=== PATIENT | female | born 1985 | race Caucasian/White ===

== ENCOUNTER → 2017-05-24 | Outpatient (CLI) | payer BC ==
[2017-05-24 14:30] LABS: URINE APPEARANCE CLEAR (CLEAR); URINE BILIRUBIN NEG (NEG); URINE COLOR YELLOW; URINE NITRITE NEG (NEG); URINE PH 7.5 (4.5-7.5); URINE SPECIFIC GRAVITY 1.013 (1.000-1.030); UROBILINOGEN NEG (NEG)
[2017-05-24 14:33] LABS: MANUAL MICROSCOPIC REQUIRED? NO; REVIEW REQ? NO
== END | disposition home or self-care (01) ==
LOC: C.LABSPEC 13:50
PROVIDERS: ATTEND Obstetrics & Gynecology
DX: Z34.01 Encounter for supervision of normal first pregnancy, first trimester (principal)

== ENCOUNTER → 2017-05-30 | Outpatient (CLI) | payer BC ==
[2017-06-02 13:34] LABS: CHLAMYDIA TRACH RNA*** NOT DETECTED (NOT DETECTED); GC (NEIS GONORRHOEAE)RNA** NOT DETECTED (NOT DETECTED)
== END | disposition home or self-care (01) ==
LOC: C.LABSPEC 13:16
PROVIDERS: ATTEND Obstetrics & Gynecology
DX: Z34.01 Encounter for supervision of normal first pregnancy, first trimester (principal); Z3A.00 Weeks of gestation of pregnancy not specified

== ENCOUNTER → 2017-05-30 | Outpatient (CLI) | payer BC | END | disposition home or self-care (01) | LOC: C.PAPS 14:05 | PROVIDERS: ATTEND Obstetrics & Gynecology | DX: Z34.01 Encounter for supervision of normal first pregnancy, first trimester (principal); Z3A.00 Weeks of gestation of pregnancy not specified ==

== ENCOUNTER → 2017-06-03 | Outpatient (CLI) | payer OTHER ==
[2017-06-03 16:43] LABS: BASO % 0.2 %; BASO ABS # 0.02 K/uL (0-0.2); COMPLETE YES; EOS % 1.3 %; IG% 0.3 %; LYMPH % 26.8 %; MEAN CELL VOLUME 88.8 fL (80-100); MEAN CORPUSCULAR HEMOGLOBIN 30.1 pg (25-34); MEAN CORPUSCULAR HGB CONC 33.9 g/dl (32-36); MEAN PLATELET VOLUME 9.9 fL (7.4-10.4); MONO % 7.9 %; NEUT % 63.5 %; PLATELET COUNT 376 K/uL (130-400); RED BLOOD COUNT 4.28 M/uL (4.2-5.4); WHITE BLOOD COUNT 9.71 K/uL (4.8-10.8)
== END | disposition home or self-care (01) ==
LOC: C.LAB1850 14:32
PROVIDERS: ATTEND Obstetrics & Gynecology
DX: Z34.01 Encounter for supervision of normal first pregnancy, first trimester (principal)

== ENCOUNTER 2017-08-14 20:54 | Emergency (ER) | payer OTHER ==
[~2017-08-14] VITALS: Ht 172.7 cm; Wt 70.1 kg
[2017-08-14 20:55] VITALS: TEMP 36.5; Ht 172.7 cm; Wt 70.1 kg
[2017-08-14] MEDS ORDERED: SODIUM CHLORIDE 0.9% 1000ML 1,000 ML IV STA (21:08)
[2017-08-14] MEDS ORDERED: MULT-506 PO (21:20)
[2017-08-14] MEDS ORDERED: MISCCAP80 PO (21:20)
[2017-08-14] MEDS ORDERED: OMEG1CAP71 PO (21:20)
[2017-08-14] MEDS ORDERED: FERR1TAB23 PO (21:20)
[2017-08-14 21:41] LABS: BASO % 0.1 %; BASO ABS # 0.01 K/uL (0-0.2); COMPLETE YES; EOS % 0.9 %; IG% 0.7 %; LYMPH % 16.8 %; LYMPH ABS # 1.94 K/uL (1.2-3.4); MEAN CELL VOLUME 89.6 fL (80-100); MEAN CORPUSCULAR HEMOGLOBIN 31.1 pg (25-34); MEAN CORPUSCULAR HGB CONC 34.7 g/dl (32-36); MEAN PLATELET VOLUME 9.5 fL (7.4-10.4); MONO % 4.6 %; NEUT % 76.9 %; PLATELET COUNT 299 K/uL (130-400); RED BLOOD COUNT 4.02 M/uL (4.2-5.4); WHITE BLOOD COUNT 11.57 K/uL (4.8-10.8)
--- NOTE | 2017-08-14 21:44 | DIAGNOSTIC IMAGING REPORT ---
CHEST ONE VIEW PORTABLE HISTORY: 32 years-old Female CHEST PAIN acute atypical chest pain COMPARISON: None available TECHNIQUE: Portable upright AP view of the chest FINDINGS: Cardiomediastinal and hilar silhouettes are within normal limits. There is no pneumothorax, pleural effusion, focal airspace consolidation or overt pulmonary edema. The bones of the chest are grossly intact. IMPRESSION: No acute process. The above report was generated using voice recognition software. It may contain grammatical, syntax or spelling errors. Electronically signed by: Ghanshyam Roach M.D. 08/14/2017 9:43 PM Dictated Date/Time: 08/14/2017 9:42 PM
[2017-08-14 22:00] LABS: ALT/SGPT 28 U/L (12-78); BLOOD UREA NITROGEN 12 mg/dl (7-18); BUN/CREATININE RATIO 19.3 (10-20); CALCIUM 8.4 mg/dl (8.5-10.1); CARBON DIOXIDE 25 mmol/L (21-32); CHLORIDE 101 mmol/L (98-107); CREATININE 0.64 mg/dl (0.60-1.20); GLUCOSE 108 mg/dl (70-99); POTASSIUM 3.1 mmol/L (3.5-5.1); SODIUM 133 mmol/L (136-145)
[2017-08-14 22:03] LABS: ALKALINE PHOSPHATASE 45 U/L (45-117); AST/SGOT 16 U/L (15-37)
[2017-08-14 22:23] LABS: URINE APPEARANCE CLEAR (CLEAR); URINE BILIRUBIN NEG (NEG); URINE COLOR YELLOW; URINE EPITHELIAL CELL AUTO >30 /lpf (0-5); URINE NITRITE NEG (NEG); URINE PH 5.5 (4.5-7.5); URINE SPECIFIC GRAVITY 1.031 (1.000-1.030); UROBILINOGEN NEG (NEG)
[2017-08-14 22:26] LABS: MANUAL MICROSCOPIC REQUIRED? NO; REVIEW REQ? NO
[2017-08-14] MEDS ORDERED: POTASSIUM CHLORIDE 10 MEQ TABCR PO STA (23:00)
--- NOTE | 2017-08-14 23:07 | EMERGENCY ROOM VISIT NOTE ---
History Report prepared by Lona: Richard Sampson Under the Supervision of: Dr. Jair Gutierrez M.D. First contact with patient: 20:57 Chief Complaint: SYNCOPE (NEAR SYNCOPE) Stated Complaint: DIZZY,HEART RACING, HBP Nursing Triage Summary: Pt states she is 22 wks preg. Throughout the day has been lightheaded/dizzy. 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 Indigestion. 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 She notes that she suddenly felt dizzy and needed to "sit down or I'm going to pass out." She notes palpitations. She reports being 22 weeks with her first child. She notes that she feels the baby is kicking and moving as normal. She denies any abdominal pain, shortness of breath, leg pain, leg swelling, or current vaginal bleeding. She notes that in the beginning of her she had subchorionic hemorrhage that has since resolved. She notes a recent head cold and congestion. She notes taking a multivitamin daily. She denies any history of blood clots or thyroid disease. She has a history of varicose veins. 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 She denies leg pain, leg swelling, or current vaginal bleeding. She notes a recent head cold and congestion. Review of Systems See HPI for pertinent positives & negatives. A total of 10 systems reviewed and were otherwise negative. Past Medical & Surgical Medical Problems: (1) Dehydration (2) Dizziness Old medical records were reviewed. Nurse's notes were reviewed and I agree with. Family History No pertinent family history was reported. Social History Smoking Status: Never Smoker Smokeless Tobacco Use: No Alcohol Use: none Drug Use: none Marital Status: in relationship Occupation Status: employed Current/Historical Medications Scheduled Ferrous Sulfate (Iron), 325 MG PO DAILY Multivitamin (Multivitamin), 1 TAB PO DAILY [place] 3 Fatty Acids-[place] 6 Fa ([place] 3-6-9 Complex), 1 CAP PO DAILY Probiotic Product (Probiotic), 1 CAP PO DAILY Allergies Coded Allergies: No Known Allergies (Unverified , 08/14/17) Physical Exam Vital Signs Date Time Temp Pulse Resp B/P (MAP) Pulse Ox O2 Delivery O2 Flow Rate FiO2 08/14/17 23:36 79 18 113/69 98 08/14/17 22:28 81 18 117/66 97 Room Air 08/14/17 21:11 108 08/14/17 20:55 36.5 102 18 167/93 99 Room Air Physical Exam General: Mildly anxious-appearing young female in no acute distress. HEENT: Normal cephalic atraumatic. Pupils are equal round and reactive to light. Extraocular movements are intact. Oropharynx is pink with moist mucous membranes. No swelling of the mouth lips or tongue. Neck: Supple with a midline trachea. No meningeal signs or stiffness, no JVD or bruits. No Stridor. Chest: Clear to auscultation bilaterally. No wheezes or rhonchi. No increased work of breathing. Heart: Mildly tachycardiac and rhythm. Abdomen: Soft nontender, nondistended without rebound guarding or rigidity. Gravid. Extremities: No cyanosis clubbing or edema. No calf tenderness or assymetry Spine/Back. Non tender to palpation. No CVA tenderness Skin: Good turgor without rashes. Neurologic exam: Cranial nerves two through 12 are intact. Motor and sensation are intact and symmetrical throughout. Medical Decision & Procedures ER Provider Diagnostic Interpretation: Radiology results as stated below per my review and radiologist interpretation: CHEST ONE VIEW PORTABLE HISTORY: 32 years-old Female CHEST PAIN acute atypical chest pain COMPARISON: None available TECHNIQUE: Portable upright AP view of the chest FINDINGS: Cardiomediastinal and hilar silhouettes are within normal limits. There is no pneumothorax, pleural effusion, focal airspace consolidation or overt pulmonary edema. The bones of the chest are grossly intact. IMPRESSION: No acute process. The above report was generated using voice recognition software. It may contain grammatical, syntax or spelling errors. Electronically signed by: Ghanshyam Roach M.D. 08/14/2017 9:43 PM Dictated Date/Time: 08/14/2017 9:42 PM Laboratory Results 08/14/17 21:25 Red Blood Count 4.02, Mean Corpuscular Volume 89.6, Mean Corpuscular Hemoglobin 31.1, Mean Corpuscular Hemoglobin Concent 34.7, Mean Platelet Volume 9.5, Neutrophils (%) (Auto) 76.9, Lymphocytes (%) (Auto) 16.8, Monocytes (%) (Auto) 4.6, Eosinophils (%) (Auto) 0.9, Basophils (%) (Auto) 0.1, Neutrophils # (Auto) 8.91, Lymphocytes # (Auto) 1.94, Monocytes # (Auto) 0.53, Eosinophils # (Auto) 0.10, Basophils # (Auto) 0.01 08/14/17 21:25 Test 08/14/17 21:25 08/14/17 21:43 White Blood Count 11.57 K/uL (4.8-10.8) Red Blood Count 4.02 M/uL (4.2-5.4) Hemoglobin 12.5 g/dL (12.0-16.0) Hematocrit 36.0 % (37-47) Mean Corpuscular Volume 89.6 fL (80-100) Mean Corpuscular Hemoglobin 31.1 pg (25-34) Mean Corpuscular Hemoglobin Concent 34.7 g/dl (32-36) Platelet Count 299 K/uL (130-400) Mean Platelet Volume 9.5 fL (7.4-10.4) Neutrophils (%) (Auto) 76.9 % Lymphocytes (%) (Auto) 16.8 % Monocytes (%) (Auto) 4.6 % Eosinophils (%) (Auto) 0.9 % Basophils (%) (Auto) 0.1 % Neutrophils # (Auto) 8.91 K/uL (1.4-6.5) Lymphocytes # (Auto) 1.94 K/uL (1.2-3.4) Monocytes # (Auto) 0.53 K/uL (0.11-0.59) Eosinophils # (Auto) 0.10 K/uL (0-0.5) Basophils # (Auto) 0.01 K/uL (0-0.2) RDW Standard Deviation 39.2 fL (36.4-46.3) RDW Coefficient of Variation 12.1 % (11.5-14.5) Immature Granulocyte % (Auto) 0.7 % Immature Granulocyte # (Auto) 0.08 K/uL (0.00-0.02) D-Dimer 400 ug/L FEU (0-500) Anion Gap 7.0 mmol/L (3-11) Est Creatinine Clear Calc Drug Dose 129.6 ml/min Estimated GFR () 138.8 Estimated GFR (Non- 119.7 BUN/Creatinine Ratio 19.3 (10-20) Calcium Level 8.4 mg/dl (8.5-10.1) Total Bilirubin 0.4 mg/dl (0.2-1) Direct Bilirubin < 0.1 mg/dl (0-0.2) Aspartate Amino Transf (AST/SGOT) 16 U/L (15-37) Alanine Aminotransferase (ALT/SGPT) 28 U/L (12-78) Alkaline Phosphatase 45 U/L (45-117) Troponin I < 0.015 ng/ml (0-0.045) Total Protein 7.0 gm/dl (6.4-8.2) Albumin 3.3 gm/dl (3.4-5.0) Lipase 140 U/L (73-393) Urine Color YELLOW Urine Appearance CLEAR (CLEAR) Urine pH 5.5 (4.5-7.5) Urine Specific Melvin 1.031 (1.000-1.030) Urine Protein NEG (NEG) Urine Glucose (UA) 2+ (NEG) Urine Ketones TRACE (NEG) Urine Occult Blood NEG (NEG) Urine Nitrite NEG (NEG) Urine Bilirubin NEG (NEG) Urine Urobilinogen NEG (NEG) Urine Leukocyte Esterase TRACE (NEG) Urine WBC (Auto) 10-30 /hpf (0-5) Urine RBC (Auto) 0-4 /hpf (0-4) Urine Hyaline Casts (Auto) 1-5 /lpf (0-5) Urine Epithelial Cells (Auto) >30 /lpf (0-5) Urine Bacteria (Auto) NEG (NEG) Laboratory studies as stated above per my review. Medications Administered Medications (Trade) Dose Ordered Sig/Ruslan Route Start Time Stop Time Status Last Admin Dose Admin Sodium Chloride 1,000 ml @ 999 mls/hr Q1H1M STAT IV 08/14/17 21:08 08/14/17 22:08 DC 08/14/17 21:44 999 MLS/HR Potassium Chloride (Klor-Con M10) 40 meq NOW STAT PO 08/14/17 23:00 08/14/17 23:01 DC 08/14/17 23:12 40 MEQ ECG Indication: chest pain Rate (beats per minute): 79 Rhythm: normal sinus, other (with sinus arrythmia ) Findings: no acute ischemic change Comparison ECG Date: no prior available ED Course 2056: Past medical records reviewed. The patient was evaluated in room C9, and a complete history and physical examination were performed. 2126: I reassessed the patient at this time. She is feeling better and resting comfortably. 2216: I reassessed the patient at this time. She is feeling better and resting comfortably. 2256: I reassessed the patient at this time. She is feeling better and resting comfortably. 232: I reassessed the patient at this time. She is feeling better and resting comfortably. I discussed the results and treatment plan with the patient. I answered all pertaining questions that she had. She expressed understanding and verbalized agreement. The patient will be discharged home. Medical Decision Differentials include, but are not limited to; palpitations, syncope , arrhythmia, cardiac disease, PE, infection, and complication. This patient comes in as described above she's felt dizzy and is about 22 weeks . She's had no problems with the such as bleeding. She does feel normal movement. We documented heart tones here. She's had no shortness of breath. She has a cough and URI type symptoms. Chest x-ray was obtained with the baby shielded was unremarkable. EKG shows no acute ischemic changes or ectopy seen. IV access established and she was hydrated with 1 liter IV normal saline. Her heart rate came down significantly into this 80s she looks and feels better. She has a mildly low potassium 3.1. She was given 40 mEq and should increase her dietary potassium. Her urinalysis is suboptimal as it is greater than 30 epithelial cells however she has nothing to suggest infection. She has no protein in her urine or any peripheral edema. She feels good and would like to go home. I recommend that she follow up with her regular doctor and return if: Worsening of symptoms, any new problems or concerns, any problems or chest pain or shortness of breath. Medication Reconcilliation Current Medication List: was personally reviewed by me Blood Pressure Screening Patient's blood pressure: Normal blood pressure Impression Primary Impression: Dizziness Additional Impressions: Dehydration Hypokalemia Scribe Attestation The scribe's documentation has been prepared under my direction and personally reviewed by me in its entirety. I confirm that the note above accurately reflects all work, treatment, procedures, and medical decision making performed by me. Departure Information Dispostion Home / Self-Care Referrals Cecille Gold (PCP) Forms HOME CARE DOCUMENTATION FORM, IMPORTANT VISIT INFORMATION Patient Instructions My [facility] Additional Instructions Rest. Drink plenty of fluids. 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
[2017-08-14 23:36] VITALS: BP 113/69; PULSE 79; O2SAT 98
== END 2017-08-14 23:36 | disposition home or self-care (01) ==
LOC: C.EDB 20:55 → C.EDC 23:36
DX: O99.282 Endocrine, nutritional and metabolic diseases complicating pregnancy, second trimester (principal); E86.0 Dehydration; E87.6 Hypokalemia; Z3A.22 22 weeks gestation of pregnancy

== ENCOUNTER → 2017-09-27 | Outpatient (CLI) | payer OTHER ==
[~2017-09-27] MED LIST: FERR1TAB23 PO; MISCCAP80 PO; MULT-506 PO; OMEG1CAP71 PO
[2017-09-27 10:55] LABS: HEMATOCRIT 32.9 % (37-47); HEMOGLOBIN 11.3 g/dL (12.0-16.0)
== END | disposition home or self-care (01) ==
LOC: C.LAB1850 09:15
PROVIDERS: ATTEND Obstetrics & Gynecology
DX: Z34.03 Encounter for supervision of normal first pregnancy, third trimester (principal)

== ENCOUNTER → 2017-11-20 | Outpatient (CLI) | payer OTHER | END | disposition home or self-care (01) | LOC: C.LABSPEC 15:38 | PROVIDERS: ATTEND Obstetrics & Gynecology | DX: Z34.03 Encounter for supervision of normal first pregnancy, third trimester (principal) ==

== ENCOUNTER 2017-12-17 04:32 | Inpatient (IN) | payer OTHER ==
[~2017-12-17] VITALS: Ht 172.7 cm; Wt 79.0 kg
[2017-12-17] MEDS ORDERED: ACET650S10 (05:52)
[2017-12-17 05:54] VITALS: Ht 172.7 cm; Wt 79.0 kg
[2017-12-17] MEDS ORDERED: LACTATED RINGER'S 1000ML 1,000 ML IV PRN (07:38)
[2017-12-17] MEDS ORDERED: PENICILLIN G POTASSIUM IV 3 MU in DEXTROSE 5% 100ML 100 ML IV PRN (07:45)
[2017-12-17] MEDS ORDERED: PENICILLIN G POTASSIUM IV 6 MU in DEXTROSE 5% 250ML 250 ML IV STA (07:46)
[2017-12-17 07:57] LABS: HEMATOCRIT 40.2 % (37-47); HEMOGLOBIN 14.7 g/dL (12.0-16.0); MEAN CELL VOLUME 89.5 fL (80-100); MEAN CORPUSCULAR HEMOGLOBIN 32.7 pg (25-34); MEAN CORPUSCULAR HGB CONC 36.6 g/dl (32-36); MEAN PLATELET VOLUME 10.4 fL (7.4-10.4); PLATELET COUNT 303 K/uL (130-400); RED CELL DISTRIBUTION WIDTH CV 12.4 % (11.5-14.5); RED CELL DISTRIBUTION WIDTH SD 40.2 fL (36.4-46.3); WHITE BLOOD COUNT 17.83 K/uL (4.8-10.8)
[2017-12-17] MEDS ORDERED: LACTATED RINGER'S 1000ML 1,000 ML IV SCH (08:00)
[2017-12-17] MEDS ORDERED: BUPIVACAINE 0.25% 30 ML VIAL ONE (08:15)
[2017-12-17] MEDS ORDERED: FENTANYL CITRATE INJ 50 MCG/1 ML 2 ML VIAL ONE (08:15)
[2017-12-17] MEDS ORDERED: EpHEDrine SULFATE INJ 50 MG/ML AMP ONE (08:15)
[2017-12-17] MEDS ORDERED: FENTANYL 2MCG/ML ROPIV 1.25MG/ML 100ML BAG EPI ONE (08:16)
[2017-12-17] MEDS ORDERED: NALOXONE HCL INJ 1 MG in SODIUM CHLORIDE 0.9% 1000ML 1,000 ML IV PRN (09:03)
[2017-12-17] MEDS ORDERED: LACTATED RINGER'S 1000ML 500 ML IV PRN (09:03)
[2017-12-17] MEDS ORDERED: FENTANYL 2MCG/ML ROPIV 1.25MG/ML 100ML BAG EPI PRN (09:15)
[2017-12-17] MEDS ORDERED: EpHEDrine SULFATE INJ 50 MG/ML AMP IV PRN (09:15)
[2017-12-17] MEDS ORDERED: DiphenhydrAMINE HCL 50 MG/ML VIAL IV PRN (09:15)
[2017-12-17] MEDS ORDERED: NALOXONE HCL INJ 0.4 MG/1 ML VIAL/CARP IV PRN (09:15)
[2017-12-17] MEDS ORDERED: ONDANSETRON INJ 2 MG/ML 2 ML VIAL IV PRN (09:15)
[2017-12-17] MEDS ORDERED: NALBUPHINE HCL INJ 10 MG/ML AMP IV PRN (09:15)
[2017-12-17] MEDS ORDERED: OXYTOCIN 30 UNITS/500ML NSS IV ONE (09:45)
[2017-12-17] MEDS ORDERED: OXYCODONE/ACETAMINOPHEN 5-325 TAB PO PRN (10:15)
[2017-12-17] MEDS ORDERED: HYDROCORTISONE ACETATE 25 MG SUPP PR PRN (10:15)
[2017-12-17] MEDS ORDERED: BENZOCAINE 20% AER SPR 82.5 GM CAN EXT PRN (10:15)
[2017-12-17] MEDS ORDERED: LANOLIN OINT EXT PRN (10:15)
[2017-12-17] MEDS ORDERED: OXYTOCIN 30 UNITS/500ML NSS IV PRN (10:15)
[2017-12-17] MEDS ORDERED: ACETAMINOPHEN 325 MG TAB PO PRN (10:15)
[2017-12-17] MEDS ORDERED: SUPERCREAM 0.870 % 15GM JAR EXT PRN (10:15)
[2017-12-17] MEDS ORDERED: DIPHTHERIA/TETANUS/PERTUSSIS 0.5 ML SYR/VIAL IM. ONE (10:15)
--- NOTE | 2017-12-17 11:09 | DELIVERY SUMMARY ---
DATE OF OPERATION: 12/17/2017 PREOPERATIVE DIAGNOSES: 1. Intrauterine at 39-6/7 weeks. 2. Active labor. POSTOPERATIVE DIAGNOSES: Same. PROCEDURES: 1. Epidural anesthesia. 2. Normal spontaneous vaginal delivery. 3. Right labial laceration and first-degree vaginal laceration with repair. SURGEON: Joyce Colon MD ANESTHESIA: Epidural. ESTIMATED BLOOD LOSS: 400 mL. DESCRIPTION OF PROCEDURE: The patient presented to labor and delivery in early active labor. Once she got active, she progressed very quickly. She got an epidural when she was 3-4 cm dilated. After the epidural, she was checked and found to be 6 cm dilated and within the next 20 minutes was 8-9 cm dilated. Baby's tracing was category 2 at this time with some variable/late appearing decelerations that responded to position change and oxygen. They then transitioned into early decelerations and was quickly found to be complete, complete and +2 station. She pushed effectively to deliver a viable male in BUBBA presentation. The nose and mouth were bulb suctioned. There was no nuchal cord. The rest of the was then delivered without difficulty. There was immediate cry. The nose and mouth were again bulb suctioned and the infant was placed on the maternal abdomen for drawing in attention. The cord was clamped and cut at approximately 1-1/2 minutes of life. Cord blood and segment were obtained. Placenta was delivered spontaneously intact with a 3-vessel cord. Cervix, sulci, and rectum as well as the perineum were examined and found to be intact. A right labial laceration was repaired with interrupted sutures of 4-0 Vicryl and a small vaginal laceration was repaired with 3-0 Vicryl. Hemostasis was obtained with dilute Pitocin and fundal massage. Apgars were 8 and 9. Mother and baby doing well at the end of the delivery. I attest to the content of the Intraoperative Record and any orders documented therein. Any exception s are noted below.
--- NOTE | 2017-12-17 12:08 | Anesthesia Procedure Note ---
Anesthesia Epidural Removal Nt Date & Time Dec 17, 2017 at 12:08 Notes Mental Status: alert / awake / arousable, participated in evaluation Nausea / Vomiting: adequately controlled Pain: adequately controlled Airway Patency, RR, SpO2: stable & adequate BP & HR: stable & adequate Hydration State: stable & adequate Neuraxial Anesthesia: was administered Anesthetic Complications: no major complications apparent, pt satisfied with anesthetic care Epidural: removed without complications, with tip intact
[2017-12-17 13:00] VITALS: BP 123/74; PULSE 68; TEMP 36.6; O2SAT 99
[2017-12-17 15:55] VITALS: BP 125/79; PULSE 68; TEMP 36.6; O2SAT 99
[2017-12-17 19:10] VITALS: BP 122/75; PULSE 71; TEMP 36.6; O2SAT 96
[2017-12-17] MEDS: DOCUSATE SODIUM 100 MG CAP PO SCH (20:00)
[2017-12-17 23:25] VITALS: BP 117/68; PULSE 68; TEMP 36.7
[2017-12-18 04:30] VITALS: BP 102/66; PULSE 67; TEMP 36.5
--- NOTE | 2017-12-18 06:41 | Progress Note ---
Subjective Dec 18, 2017. Subjective conversation w/ patient, physical exam, chart review, lab review Ambulation: ambulating normally Voiding: no voiding problems Passing Gas: Yes Diet Tolerance: Regular Diet Lochia: Moderate Feeding Type: Breast Feeding Review of Systems Constitutional: No fever, No chills Respiratory: No cough, No shortness of breath Cardiac: No chest pain Abdomen: No pain, No nausea, No vomiting Female : No dysuria Objective Vital Signs Date Time Temp Pulse Resp B/P (MAP) Pulse Ox O2 Delivery O2 Flow Rate FiO2 12/18/17 04:30 36.5 67 18 102/66 (78) Room Air 12/17/17 23:25 36.7 68 16 117/68 (84) Room Air 12/17/17 23:25 Room Air 12/17/17 19:10 36.6 71 16 122/75 (91) 96 Room Air 12/17/17 15:55 36.6 68 16 125/79 (94) 99 Room Air 12/17/17 15:55 99 Room Air 12/17/17 13:00 99 Room Air 12/17/17 13:00 36.6 68 18 123/74 (90) 99 Room Air Physical Exam General Appearance: WELL-APPEARING, WD/WN, NO APPARENT DISTRESS Respiratory/Chest: lungs clear, no respiratory distress Cardiovascular: regular rate, rhythm, no murmur Abdomen: non tender, soft Fundus: Firm Extremities: non-tender, normal inspection Laboratory Results Last 24 Hours Test 12/17/17 07:48 12/17/17 12:14 12/18/17 04:44 White Blood Count 17.83 K/uL Red Blood Count 4.49 M/uL Hemoglobin 14.7 g/dL Hematocrit 40.2 % Mean Corpuscular Volume 89.5 fL Mean Corpuscular Hemoglobin 32.7 pg Mean Corpuscular Hemoglobin Concent 36.6 g/dl RDW Standard Deviation 40.2 fL RDW Coefficient of Variation 12.4 % Platelet Count 303 K/uL Mean Platelet Volume 10.4 fL Rubella IgG Antibody IMMUNE Assessment and Plan Problem List Medical Problems: (1) Hypokalemia Status: Acute (2) Status: Acute Post- (1) Day#: 1 Continue Routine Care: 32, F, , O+/GBS+, PPD1. Vitals reviewed, WNL. Hgb 14.7 on admission---> pending today. Patient is doing well clinically. Plan; 1. Vaginal delivery; ambulate, support bf, monitor lochia, control pain Resident Physician Supervision Note: I interviewed and examined the patient. Discussed with Dr. Dr. Nunes and agree with findings and plan as documented in the note. Any exceptions or clarifications are listed here: Doing well, uterus at u, routine care. Documented By: Joyce Colon
--- NOTE | 2017-12-18 07:25 | Discharge Instructions ---
Discharge Instructions Date of Service Dec 18, 2017. Admission Reason for Admission: LABOR Discharge Discharge Diagnosis / Problem: vaginal delivery Discharge Goals Goal(s): Routine recovery after delivery Medications Continue Dispensed Medications: supercream, dermaplast, tucks, lansinoh Activity Recommendations Activity Limitations: per Instructions/Follow-up section . Instructions / Follow-Up Instructions / Follow-Up ACTIVITY RECOMMENDATIONS: * Gradual return to full activity over the next 2-3 weeks. * No lifting - nothing heavier than baby over the next 2-3 weeks. * Do not engage in vigorous exercise, sexual activity or sports until cleared by your physician. * Do not drive or operate any motorized equipment until cleared by your physician. * You may shower/bathe daily. MEDICATIONS: For discomfort or pain, you may use Acetaminophen (Tylenol), Ibuprofen (Advil), or Naproxen (Aleve) following the package directions. For constipation you may use Colace following the package directions. BREAST CARE: If you are not breast feeding: * Wear a supportive bra 24 hours a day for one to two weeks. * Avoid stimulating your breasts and nipples as much as possible during the first few weeks after delivery. * When taking a shower, have the warm water hit your back, not breasts. * When your breasts feel full, apply ice packs. Usually three to four times a day helps ease the discomfort. * Take a mild pain medication (Tylenol / Motrin) when you are uncomfortable. If breast feeding: * Use breast milk to lubricate nipples. Lansinoh cream may be used for sore nipples. You do not need to remove cream prior to breast feeding. If using a different brand of cream, check the label for directions regarding removal of cream prior to nursing. * Wear a supportive bra. * If having problems with breasts or breast feeding, call a senior sustainability consultant or your health care provider. EPISIOTOMY CARE: After delivery, if you have an episiotomy (stitches), the following steps will ease discomfort and aid healing. * For the first 24 hours after delivery, place ice packs next to your episiotomy to help reduce swelling. * After the first 24 hour-period, sitz baths, either portable or in the tub, are suggested. A shower with a shower arm sprayed over the episiotomy may be comforting. * Priya care should be done after each voiding and bowel movement. Squirt warm water from a plastic bottle over the perineum (region of the body between the anus and urinary opening) and pat dry. * Use Dermoplast to ease discomfort. Shake container. [place] directly over the episiotomy. Place a Tucks on a clean sanitary pad next to your episiotomy. SPECIAL CARE INSTRUCTIONS: When you are discharged from the hospital, it is important for you to follow the instructions listed below: * During the first week at home, you should be able to care for yourself and your baby. In addition, the usual light household activities are encouraged. * Limit your activities to the way you feel. Do not try to clean the house or move furniture. Be sensible. * If you actively engage in sports and have done so up until the time of your delivery, you may resume these activities as soon as you feel able. This may take up to one month or even longer. Use good judgment. * Continue to take your vitamins for at least six weeks after the of your baby. * Your diet need not be limited unless you were on a special diet before your delivery. Breast-feeding mothers need around 2500 calories per day and at least 64-80 ounces of fluid per day (8 to 10 glasses). * You should eat foods from the four major food groups. Crash diets or fad diets are to be avoided. Eating lean meats, fresh fruits and vegetables, low-fat dairy products, high fiber foods and a regular exercise program, will help you get back to your pre- weight without putting your health at risk. * Constipation is sometimes a problem after delivery. Take a mild laxative as needed. If breast feeding, Milk of Magnesia is acceptable to use. You may use a suppository or Fleets enema if no episiotomy. * A daily shower or tub bath is suggested. Be sure to thoroughly and gently dry the perineum. * A bloody vaginal discharge will usually continue until around four weeks post . A small amount of bleeding may continue for as long as six weeks. Vaginal discharge changes from the bright red bleeding after delivery to pink then brownish and finally yellowish-pink before becoming white and disappearing. * Bleeding may increase with activity. Your first period may come in 4-8 weeks. If you are breast feeding, your period may be delayed even longer. * [place] (sex) can begin whenever both you and your partner feel comfortable and do not have any form of genital infection. It is recommended that you wait at least six weeks for internal and external healing to occur. If you have questions, please talk to your health care practitioner. A condom should be used to prevent infection and . * Foreplay, gentle intercourse and lubrication is very important the first several times to prevent pain. A water-based lubricant such as K-Y jelly or Astroglide may be used. * If you have RH negative blood and your baby is RH positive, you will receive RHOGAM by injection prior to discharge. The nurse will give you a card to keep with you that has the date and place that you received RHOGAM after delivery. * During your care, you had a Rubella screen done to check for the presence of rubella antibodies in your blood. If your test was negative, you will receive a Rubella vaccine prior to discharge. This vaccine may cause a fever, soreness at the injection site and flu-like symptoms. If these symptoms persist, notify your health care practitioner. is not advised for one month after a Rubella vaccine. * Verbalizes understanding of car seat law as reviewed with patient nursing. * Car Seat hand-out given and reviewed with patient by nursing. * Shaken baby information reviewed with patient by nursing. Call you doctor if: * Heavy bleeding (saturating several pads an hour) or passing clots the size of your fist. * A fever >101 degrees F (38.3 degrees C) on two occasions four hours apart and /or chills. * Unusual pain in the pelvic or vaginal areas. * "Baby Blues" lasting longer than two weeks. If you have any questions or concerns, call your health care practitioner at . FOLLOW UP VISIT: * Please call the office at to schedule a 6 week examination. It is important you keep this appointment. It is important for you to make arrangements for either yearly or twice yearly check-ups thereafter. Current Hospital Diet Patient's current hospital diet: Regular OB Diet Discharge Diet Recommended Diet: Regular Diet, Regular OB Diet Pending Studies Studies pending at discharge: no Medical Emergencies . Who to Call and When: Medical Emergencies: If at any time you feel your situation is an emergency, please call [phone] immediately. . Non-Emergent Contact Non-Emergency issues call your: Primary Care Provider, [employer] . . "Provider Documentation" section prepared by Luis Nunes. .
[2017-12-18 08:20] VITALS: BP 131/92; PULSE 85; TEMP 36.7; O2SAT 98
[2017-12-18] MEDS: DOCUSATE SODIUM 100 MG CAP PO SCH ×2 (08:21→19:47)
[2017-12-18] MEDS: PRENATAL VITAMIN TAB PO SCH (08:22)
[2017-12-18 08:50] LABS: HEMATOCRIT 32.9 % (37-47); HEMOGLOBIN 11.6 g/dL (12.0-16.0)
[2017-12-18] MEDS: IBUPROFEN 600 MG TAB PO PRN (16:08)
[2017-12-18 16:55] VITALS: BP 121/71; PULSE 71; TEMP 36.5; O2SAT 97
[2017-12-18 19:40] VITALS: BP 122/70; PULSE 78; TEMP 36.7; O2SAT 97
[2017-12-18 23:35] VITALS: BP 123/70; PULSE 76; TEMP 36.5; O2SAT 98
[2017-12-19] MEDS: IBUPROFEN 600 MG TAB PO PRN ×2 (01:51→08:23)
--- NOTE | 2017-12-19 06:43 | Progress Note ---
Subjective Dec 19, 2017. Subjective conversation w/ patient, physical exam, chart review, lab review Ambulation: ambulating normally Voiding: no voiding problems Passing Gas: Yes Diet Tolerance: Regular Diet Lochia: Small Feeding Type: Breast Feeding Review of Systems Constitutional: No fever, No chills, No sweats Respiratory: No cough, No shortness of breath Cardiac: No chest pain, No palpitations Abdomen: No pain, No nausea, No vomiting Female : No dysuria Objective Vital Signs Date Time Temp Pulse Resp B/P (MAP) Pulse Ox O2 Delivery O2 Flow Rate FiO2 12/18/17 23:35 36.5 76 18 123/70 (87) 98 Room Air 12/18/17 23:35 98 Room Air 12/18/17 19:40 36.7 78 18 122/70 (87) 97 Room Air 12/18/17 19:40 Room Air 12/18/17 16:55 97 Room Air 12/18/17 16:55 36.5 71 16 121/71 (88) 97 Room Air 12/18/17 08:20 98 Room Air 12/18/17 08:20 36.7 85 16 131/92 (105) 98 Room Air Physical Exam General Appearance: WELL-APPEARING, WD/WN, NO APPARENT DISTRESS Respiratory/Chest: lungs clear, no respiratory distress Cardiovascular: regular rate, rhythm, no murmur Abdomen: non tender, soft Fundus: Firm, Relation to Umbilicus (below the u) Extremities: non-tender, normal inspection Laboratory Results Last 24 Hours Test 12/18/17 08:31 Hemoglobin 11.6 g/dL Hematocrit 32.9 % Assessment and Plan Problem List Medical Problems: (1) Hypokalemia Status: Acute (2) Status: Acute Post- (1) Day#: 2 Continue Routine Care: 30, F, , O+/GBS+, PPD2. Vitals reviewed, WNL. Hgb 14.7 on admission---> 11.6. Patient is doing well clinically. Plan; 1. Vaginal delivery; ambulate, support bf, monitor lochia, control pain 2. Prepared patient for discharge Resident Physician Supervision Note: I was present with Dr. Nunes during the history and exam. I discussed the case with the resident and agree with the findings and plan as documented in the note. Any exceptions or clarifications are listed here: PPD#2 doing well. Discharge home today. Instructions reviewed. Documented By: Cassandra Parker
[2017-12-19 07:56] VITALS: BP 124/79; PULSE 63; TEMP 36.3; O2SAT 99
[2017-12-19 08:15] VITALS: O2SAT 99
[2017-12-19] MEDS: DOCUSATE SODIUM 100 MG CAP PO SCH (08:22)
[2017-12-19] MEDS: PRENATAL VITAMIN TAB PO SCH (08:22)
[2017-12-19 10:45] VITALS: BP_DIAS 79; PULSE 63; TEMP 36.3
== END 2017-12-19 13:44 | disposition home or self-care (01) | DRG 775 ==
LOC: C.LD 04:32 → C.OPB 04:32 → C.LD 07:39 → C.OBG 13:00 → EDSTATUS 12-18 04:28
PROVIDERS: ADMIT Obstetrics & Gynecology; ATTEND Obstetrics & Gynecology
PROC: 10E0XZZ Delivery of Products of Conception, External Approach (ICD-10-PCS; principal; 2017-12-17)
PROC: 0UQGXZZ Repair Vagina, External Approach (ICD-10-PCS; principal; 2017-12-17)
PROC: 0UQMXZZ Repair Vulva, External Approach (ICD-10-PCS; principal; 2017-12-17)
DX: O99.824 Streptococcus B carrier state complicating childbirth (principal); O70.0 First degree perineal laceration during delivery; O71.4 Obstetric high vaginal laceration alone; O76 Abnormality in fetal heart rate and rhythm complicating labor and delivery; Z37.0 Single live birth; Z3A.39 39 weeks gestation of pregnancy

== ENCOUNTER 2019-07-03 13:35 | Inpatient (IN) ==
[2019-07-03] MEDS ORDERED: LACTATED RINGER'S 1,000 ML IV PRN (15:08)
[2019-07-03] MEDS ORDERED: OXYTOCIN 30 UNITS/500 ML BAG IV PRN ×2 (15:08→16:57)
[2019-07-03 15:40] LABS: Hematocrit (blood only) 40.7 % (37-47); Hemoglobin 14.7 g/dL (12.0-16.0); Mean Corpuscular Hemoglobin 32.1 pg (25-34); Mean Corpuscular Volume 88.9 fL (80-100); Mean Platelet Volume 9.9 fL (7.4-10.4); Platelet Count 309 K/uL (130-400); RDW Coefficient of Variation 12.5 % (11.5-14.5); RDW Standard Deviation 39.7 fL (36.4-46.3); Red Blood Count 4.58 M/uL (4.2-5.4); White Blood Count 18.51 K/uL (4.8-10.8)
[2019-07-03 16:00] LABS: Mean Corpuscular Hgb Conc 36.1 g/dL (32-36)
--- NOTE | 2019-07-03 16:41 | History & Physical Report ---
Date of Service July 03, 2019 Assessment & Plan (1) Supervision of normal intrauterine in multigravida: pt was admitted, will see how arom progresses labor, anticip soon. labs done. History of Present Illness Chief Complaint: regular ctx Primary Care Provider: Cecille Gold 34yo at 38+wks ega presents to L&D with above cc. She was evaluated about 2hr ago and cx was 4cm with regular ctx and was admitted. No rom or vb. +FM. She now is feeling more intense ctx and pressure and requests exam with possible arom. pnc uncomplicated pnl rhpos, ri, gbs neg obh: x 1 gynh:nl paps, no stds pmh: neg psh: wisdom teeth, varicose vein sclerotherapy Allergies Allergy/AdvReac Type Severity Reaction Status Date / Time No Known Allergies Allergy Verified 07/01/19 14:17 Home Medications Home Medications Medication Instructions Recorded Confirmed Type ferrous sulfate 325 mg (65 mg 325 mg PO DAILY tab 04/10/19 07/03/19 History iron) tablet Patient History Medical History Varicose veins of both lower extremities History of irregular menstrual cycles History of varicella Surgical History History of wisdom tooth extraction Status post sclerotherapy of varicose veins Family History Grandmother (Maternal) Aneurysm Mother Breast cancer Grandfather (Paternal) Diabetes Aunt Breast cancer maternal Social History Preferred Language: Slovenian Communication Ability: Effective 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 Beliefs That Will Affect Care: None marital status: Current Living Situation: Spouse Other Information That Helps Us Care for You: No Feels Safe at Home: Yes Smoking Status: Never smoker Do You Dip or Chew Tobacco: No ; Second Hand Exposure: No ; Tobacco Cessation Education Requested by Patient: No Hx Alcohol Use: No Hx Substance Use: No Physical Exam Constitutional: WD/WN, vitals as above Respiratory: normal respiratory effort, lungs clear to auscultation Cardiovascular: Rate/Rhythm: regular rate and regular rhythm Gastrointestinal (Abdomen): Percussion/Palpation: abdomen soft (gravid); abdomen nontender Neurologic: grossly normal Psychiatric: A+Ox3, euthymic affect Genitourinary: Manual OB Exam: + cervical dilation 8 cm, + cervical effacement 100%, + station -1 and + amniotic fluid (AROM) clear OB Exam Monitor Tracing: + external FHT monitor used (mod variability), + external uterine monitor used (q2-3), + category I and + normal FHT variability Results & Data Vital Signs (Past 12 Hours) Vital Signs Temp Pulse Resp BP 07/03/19 14:51 97.7 F 72 18 122/83 07/03/19 14:48 97.7 F 72 18 122/83 07/03/19 13:53 98.2 F 60 18 137/77 07/03/19 13:52 60 137/77
--- NOTE | 2019-07-03 16:54 | Delivery Summary ---
Vaginal Delivery Summary Date of Service July 03, 2019 The patient dilated to complete and pushed to deliver a viable female Apg ars 8 and 9 via over intact perineum. Mouth and nose bulb suctioned at perineum, loose nuchal x 2 reduced. Shoulders and body delivered with ease. Infant was vigorous and crying at . Cord clamped and to maternal abdomen where the cord was then doubly clamped and cut. Placenta delivered spontaneously and intact, three-vessel cord. Hemostasis achieved with dilute pitocin and uterine massage. Cervix and sulci intact. EBL 300 cc. Mother and baby stable recovery. [facility] Vaginal Delivery Charge Vaginal Delivery Codes: 20210 global code for the antepartum, delivery, and post-
[2019-07-03] MEDS ORDERED: IBUPROFEN 600 MG TAB PO PRN (16:57)
[2019-07-03] MEDS ORDERED: ACETAMINOPHEN 325 MG TAB PO PRN (16:57)
[2019-07-03] MEDS ORDERED: OXYCODONE/ACETAMINOPHEN 5mg/325mg TAB PO PRN (16:57)
[2019-07-03] MEDS ORDERED: SUPERCREAM 0.870% 15 GM JAR EXT PRN (16:57)
[2019-07-03] MEDS ORDERED: OXYTOCIN 20 UNITS in LACTATED RINGER'S 1,000 ML IV SCH (17:00)
[2019-07-03] MEDS ORDERED: BENZOCAINE 20% AER SPR 82.5 GM CAN EXT PRN (17:12)
[2019-07-03] MEDS ORDERED: HYDROCORTISONE ACETATE 25 MG SUPP PR PRN (17:12)
[2019-07-03] MEDS ORDERED: DIPHTHERIA/TETANUS/PERTUSSIS 0.5 ML SYR/VIAL IM ONE (17:12)
[2019-07-03] MEDS ORDERED: DOCUSATE SODIUM 100 MG CAP PO SCH (21:00)
--- NOTE | 2019-07-04 07:45 | Obstetrical Progress Note ---
Date of Service July 04, 2019 Assessment & Plan (1) Normal labor and delivery: doing well, ready for d/c later today. f/u 6 wks pp check. instructions reviewed. Day #:: 1 Subjective Ambulation: ambulating normally Voiding: no voiding problems Diet Tolerance:: regular diet Lochia:: Small Feeding Type:: breast feeding no pain issues. wants to go home later today Physical Exam Constitutional WD/WN, vitals as above Respiratory normal respiratory effort, lungs clear to auscultation Cardiovascular Rate/Rhythm: regular rate and regular rhythm Gastrointestinal (Abdomen) Inspection/Auscultation: abdomen normal to inspection Percussion/Palpation: abdomen soft Fundus firm 2cm down Musculoskeletal nt calves no edema Neurologic grossly normal Psychiatric A+Ox3, euthymic affect Results & Data Vital Signs (Past 12 Hours) Vital Signs Temp Pulse Resp BP Pulse Ox 07/04/19 03:00 97.7 F 78 18 112/65 98 07/03/19 23:45 97.3 F L 76 18 118/78 98
[2019-07-04] MEDS ORDERED: PRENATAL VITAMIN 1 TAB PO SCH (08:00)
== END 2019-07-04 19:01 | disposition home or self-care (01) | DRG 807 ==
LOC: OPB 13:35 → 4S1 13:36 → 4S2 19:52

== ENCOUNTER 2025-06-14 15:53 | Inpatient (IN) ==
[2025-06-14] MEDS ORDERED: CALCIUM CARBONATE 500 MG CHEWABLE TAB PO PRN (16:19)
[2025-06-14] MEDS ORDERED: LIDOCAINE 1% LOCAL 20 ML VIAL INFIL PRN (16:19)
[2025-06-14] MEDS ORDERED: ACETAMINOPHEN 500 MG TAB PO PRN (16:19)
--- NOTE | 2025-06-14 16:21 | History & Physical Report ---
Date of Service June 14, 2025 Assessment & Plan (1) Group B streptococcal infection during : Plan: Carlita is a 40-year-old G3, P2 currently at 41 weeks 2 days gestational age presents in early labor as well as new finding of mild polyhydramnios noted on ultrasound in clinic. 1. Fetus: Category 1 tracing 2. Labor: Early labor at present. Will plan for rupture of membranes after complete on penicillin and will augment further if needed 3. GBS positive continue with penicillin 4. Vitals within normal limits 5. High risk quad screen declined definitive testing and cell free DNA (2) Supervision of elderly multigravida: (3) Polyhydramnios affecting : (4) Normal labor: History of Present Illness Primary Care Provider: Radha Palacios MD Carlita is a 40-year-old G3, P2 currently at 41 weeks 2 days gestational age presents in early labor and with new dilated gnosis of polyhydramnios noted in clinic. Reporting contractions every 5 to 8 minutes. Patient 4 cm dilated on exam in clinic. and Delivery Plans AMA *Weekly NST's @36 wks High risk Quad screen for T21 1:105 - Offered MFM and genetic referral - Declined - Offer cfDNA screen - Declined SGA @ 20wk, rescan @ 24 to determine if IUGR EFW 6%, AC 19% at anatomy 24 weeks AC 18, efw 12 28w - EFW 38%, AC = 31% - stop growths unless fundal height abnormal. new fob GBS Positive *Treat in Labor OB Labs: Blood Type O Positive 11/17/24 Antibody Screen NEGATIVE 11/17/24 Hgb 11.3 g/dl (12.0-16.0) L 03/25/25 Hct 33.3 % (37.0-47.0) L 03/25/25 MCV 89.2 fL (80.0-100.0) 11/17/24 Plt Count 366 K/uL (130-400) 11/17/24 Rubella IgG Antibody Immune (Immune) 11/17/24 RPR Nonreactive (Nonreactive) 12/05/18 Treponema pallidum Ab Negative (Negative) 03/25/25 Hep Bs Antigen Negative (Negative) 11/17/24 Hepatitis C Antibody Negative (Negative) 11/17/24 HIV 1&2 Ab/P24 Ag 4thGn Negative (Negative) 11/17/24 Glucose 1 Hr 50 gm 69 mg/dl (70-130) L 03/25/25 OB Optional Labs: Chlamydia trachomatis RNA Not Detected (NotDetected) 11/17/24 Neisseria gonorrhoeae RNA Not Detected (NotDetected) 11/17/24 Thyroid Stimulating Hormone (TSH) 1.321 uIu/ml (0.300-4.500) 10/26/24 Labs Reviewed: cf/sma declined declined genetics Allergies Allergy/AdvReac Type Severity Reaction Status Date / Time No Known Allergies Allergy Verified 06/14/25 14:47 Home Medications Medication Instructions Recorded Confirmed Type vitamins 30 30 mg iron-10 1 cap PO DAILY 10/26/24 06/14/25 History mg iron-folic acid 1 mg-om3 capsule ferrous sulfate [Iron (ferrous 54 mg PO DAILY 03/29/25 06/14/25 History sulfate)] Patient History Medical History (Updated 06/14/25 @ 19:52 by Tariq Arguelles MD) Fatigue Vulvar lump Nausea and vomiting in Anemia Varicose veins of both lower extremities History of varicella History of irregular menstrual cycles Surgical History Status post sclerotherapy of varicose veins History of wisdom tooth extraction Family History Grandmother (Maternal) Aneurysm Mother Breast cancer Grandfather (Paternal) Diabetes Aunt Breast cancer Denies family history of Ovarian cancer Colorectal cancer Social History Smoking Status: Never smoker Second Hand Exposure: No; Do You Dip or Chew Tobacco: No; Tobacco Cessation Education Requested by Patient: No Hx Alcohol Use: No Hx Substance Use: No Preferred Language: Pakistani Communication Ability: Effective Visual Impairment: No Limitations Hearing Ability: Normal Die Drawing Checker Required: No Beliefs That Will Affect Care: None marital status: marital status details: Ryan Davis ([phone] Current Living Situation: Spouse Current Living Situation Comment: and two children current occupational status: employed 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- [employer] How many Children do You have: 2 Other Information That Helps Us Care for You: No Feels Safe at Home: Yes Safety Concerns: Feels Safe At This Time Assistive Devices: None Results & Data Vital Signs (Past 12 Hours) Vital Signs Pulse BP 06/14/25 16:00 68 133/79 Coding Level of Care Code None Diagnoses Group B streptococcal infection during O98.819; B95.1 Encounter for supervision of multigravida of advanced maternal age in third trimester O09.523 Trimester: third trimester Polyhydramnios affecting O40.9XX0 Normal labor O80; Z37.9 (2) Supervision of elderly multigravida Trimester: third trimester Qualified Code(s): O09.523 - Supervision of elderly multigravida, third trimester
[2025-06-14 17:01] LABS: Hematocrit (blood only) 34.2 % (37.0-47.0); Hemoglobin 12.4 g/dl (12.0-16.0); Mean Corpuscular Hemoglobin 32.0 pg (25.0-34.0); Mean Corpuscular Volume 88.4 fL (80.0-100.0); Platelet Count 343 K/uL (130-400); RDW Standard Deviation 38.7 fL (36.4-46.3); Red Blood Count 3.87 M/uL (4.20-5.40); White Blood Count 11.16 K/ul (4.8-10.8)
[2025-06-14] MEDS: PENICILLIN GK 6 MU in DEXTROSE 5% 250 ML IV STA (17:10)
[2025-06-14] MEDS: LACTATED RINGER'S 1,000 ML IV PRN (17:10)
[2025-06-14] MEDS: PENICILLIN GK 3 MU in DEXTROSE 5% 100 ML IV PRN (20:41)
[2025-06-15] MEDS ORDERED: SODIUM CHLORIDE 0.9% PF INJ 10 ML VIAL EPI PRN (00:04)
[2025-06-15] MEDS ORDERED: LIDOCAINE 2% MPF LOCAL 5 ML VIAL EPI PRN (00:04)
[2025-06-15] MEDS ORDERED: ROPIVACAINE 0.5% PF 5 MG/ML 20 ML VIAL EPI PRN (00:04)
[2025-06-15] MEDS ORDERED: ONDANSETRON INJ 2 MG/ML 2 ML VIAL IV PRN (00:04)
[2025-06-15] MEDS ORDERED: NALOXONE HCL 1 MG in SODIUM CHLORIDE 0.9% 1,000 ML IV PRN (00:04)
[2025-06-15] MEDS ORDERED: BUPIVACAINE 0.25% PF 30 ML VIAL EPI PRN (00:04)
[2025-06-15] MEDS ORDERED: NALOXONE HCL 0.4 MG/1 ML VIAL/CARP IV PRN (00:04)
[2025-06-15] MEDS ORDERED: NALBUPHINE HCL INJ 10 MG/ML AMP IV PRN (00:04)
[2025-06-15] MEDS ORDERED: diphenhydrAMINE 50 MG/ML VIAL IV PRN (00:04)
[2025-06-15] MEDS ORDERED: PROMETHAZINE 6.25 MG/50.25 ML BAG IV PRN (00:04)
--- NOTE | 2025-06-15 00:06 | Anesthesiology Consultation ---
Date of Service June 15, 2025 Assessment & Plan Chart Review Chart Review: Patient NOT seen in Pre Admission Testing and Acceptable Risk for Labor Epidural Consults Requested none ASA ASA2 Proposed Anesthesia Anesthesia Type: Labor Epidural Risk / Benefits Reviewed With: PT / POA / Parent / Guardian, Accepts Plan and Informed Consent Obtained History Height/Weight Height: 5 ft 8 in Weight: 87.77 kg Allergies Allergy/AdvReac Type Severity Reaction Status Date / Time No Known Allergies Allergy Verified 06/14/25 14:47 Medications Home Medications Medication Instructions Recorded Confirmed Last Taken vitamins 30 30 mg iron-10 1 cap PO DAILY 10/26/24 06/14/25 06/13/25 21:00 mg iron-folic acid 1 mg-om3 capsule ferrous sulfate [Iron (ferrous 54 mg PO DAILY 03/29/25 06/14/25 06/07/25 sulfate)] Active Medications Generic Name Dose Route Start Last Admin Trade Name Freq PRN Reason Stop Dose Admin Lactated Ringer's 1,000 mls @ 125 mls/hr 06/14/25 16:19 06/14/25 23:35 Lr IV 06/16/25 16:18 999 mls/hr .Q8H PRN Infusion L&D Protocol Protocol Penicillin G Potassium 3 mu/ 106 mls @ 100 mls/hr 06/14/25 20:00 06/14/25 21:45 Dextrose IV 06/24/25 19:59 Infused Q4H PRN Infusion GBS(+) Until Delivery Past Medical History Medical History (Updated 06/14/25 @ 19:52 by Tariq Arguelles MD) Fatigue Vulvar lump Nausea and vomiting in Anemia Varicose veins of both lower extremities History of varicella History of irregular menstrual cycles Exercise / Class Metabolic Activity II 4-5 Yardwork/Stairs/Walk up hill Past Family History Family History Grandmother (Maternal) Aneurysm Mother Breast cancer Grandfather (Paternal) Diabetes Aunt Breast cancer Denies family history of Ovarian cancer Colorectal cancer Past Surgical History Surgical History Status post sclerotherapy of varicose veins History of wisdom tooth extraction Past Anesthesia History No Hx of Anesthesia Complications and No Family Hx of Anesthesia Complications History of PONV No Hx of PONV and No Hx of Motion Sickness Social History Smoking Status: Never smoker Do You Dip or Chew Tobacco: No Hx Alcohol Use: No Hx Substance Use: No substance use type: does not use Physical Exam Vital Signs Last Vital Signs Temp 36.7 C 06/14/25 21:55 Pulse 70 06/15/25 00:03 Resp 20 06/15/25 00:00 BP 141/86 H 06/14/25 21:55 Pulse Ox 100 06/15/25 00:03 O2 Del Method Room Air 06/14/25 19:11 ENMT Mouth: no dentition abnormality Thyromental Distance: > or= 3.5 Finger Breadths Mallampati Class: II Neck normal visual inspection Respiratory normal respiratory effort Auscultation: lungs clear to auscultation bilaterally Cardiovascular Rate/Rhythm: regular rate and regular rhythm Psychiatric Orientation: alert Testing Laboratory Results 06/14/25 16:33 Blood Type O Positive 06/14/25 16:33 Antibody Screen NEGATIVE 06/14/25 16:33
[2025-06-15] MEDS: SODIUM CHLORIDE 0.9% PF INJ 10 ML VIAL EPI STA (00:18)
[2025-06-15] MEDS: BUPIVACAINE 0.25% PF 30 ML VIAL EPI STA (00:18)
[2025-06-15] MEDS: LIDOCAINE 2%/EPINEPHRINE 1:200,000 20 ML PF EPI STA (00:18)
[2025-06-15] MEDS: fentANYL 2 MCG/ML BUPIVacaine 0.125%-NSS 100ML BAG EPI PRN (00:19)
[2025-06-15] MEDS: OXYTOCIN 30 UNITS/NSS 30 UNITS/500 ML BAG IV PRN (00:49)
[2025-06-15] MEDS ORDERED: HYDROCORTISONE ACETATE 25 MG SUPP PR PRN (00:55)
[2025-06-15] MEDS ORDERED: ACETAMINOPHEN 325 MG TAB PO PRN (00:55)
[2025-06-15] MEDS ORDERED: BENZOCAINE 20% SPRY 85 APPLN/85 GM CAN EXT PRN (00:55)
[2025-06-15] MEDS ORDERED: OXYTOCIN 30 UNITS/NSS 30 UNITS/500 ML BAG IV PRN (00:55)
--- NOTE | 2025-06-15 00:55 | Delivery Summary ---
Vaginal Delivery Summary Date of Service June 15, 2025 Vaginal Delivery Summary Patient progressed to 10 cm dilated, 100% effaced, +2 station and pushed over intact perineum with epidural anesthesia and delivered a viable with weight and Apgars pending. Head of the delivered without difficulty quickly followed by shoulders and body. was noted to be vigorous upon delivery and 1 minute delayed cord clamping was initiated. Cord was doubly clamped cut and cord blood obtained. Attention was turned deliver the placenta was delivered intact with three-vessel cord gentle cord traction. Inspection of perineum vagina cervix there is noted to be no lacerations. Sponge and instrument counts are correct at completion of the case. Both mother and stable immediate postdelivery timeframe. No complications noted and blood loss per QBL in chart. [facility] Vaginal Delivery Charge Delivery Type Details: [facility]
[2025-06-15] MEDS: DIPHTHER/TETAN/PERTUS Vaccine (Tdap, Adol/Adult) 0.5mL IM ONE (01:17)
--- NOTE | 2025-06-15 08:13 | Anesthesia Procedure Note ---
Date of Service June 15, 2025 Anesthesia Post Epidural Note Vital Signs Vital Signs: Temp Pulse Resp BP Pulse Ox O2 Del Method 36.4 C L 63 18 126/69 99 Room Air 06/15/25 00:06 06/15/25 02:52 06/15/25 03:00 06/15/25 02:52 06/15/25 00:53 06/14/25 19:11 Notes Mental Status: alert / awake / arousable and participated in evaluation Nausea / Vomiting: adequately controlled Pain: adequately controlled Airway Patency, RR, SpO2: stable & adequate BP & HR: stable & adequate Hydration State: stable & adequate Neuraxial Anesthesia: was administered and sensory block resolved Anesthetic Complications: no major complications apparent and Pt Satisfied with anesthetic care Epidural: Removed without complications and With tip intact
[2025-06-15] MEDS: FERROUS SULFATE 325 MG TAB PO SCH (09:45)
[2025-06-15] MEDS: DOCUSATE SODIUM 100 MG CAP PO SCH (09:45)
[2025-06-15] MEDS: PRENATAL VITAMIN 1 TAB PO SCH (09:45)
[2025-06-16] MEDS: IBUPROFEN 600 MG TAB PO PRN (00:20)
--- NOTE | 2025-06-16 03:26 | Obstetrical Progress Note ---
Date of Service June 16, 2025 Assessment & Plan (1) care and examination: PPD#1 doing well. . Desires DC home later today. Reviewed postop instructions - followup 6w office. Subjective Ambulation: ambulating normally Voiding: no voiding problems Diet Tolerance:: regular diet Lochia:: Moderate Review of Systems All systems reviewed & are unremarkable except as noted in HPI & below Physical Exam Constitutional WD/WN, vitals as above no acute distress Respiratory normal respiratory effort Cardiovascular Rate/Rhythm: regular rate and regular rhythm Gastrointestinal (Abdomen) Inspection/Auscultation: abdomen normal to inspection; abdomen not distended Percussion/Palpation: abdomen soft Genitourinary OB Exam Abdomen: + fundal height Fundus: + firm; not tender Results & Data Vital Signs (Past 12 Hours) Vital Signs Temp Pulse Resp BP Pulse Ox O2 Del Method 06/16/25 00:00 36.6 C 60 16 128/73 99 Room Air 06/15/25 19:40 36.5 C 61 20 132/87 99 Room Air 06/15/25 16:00 36.5 C 78 20 135/83 97 Room Air
[2025-06-16 08:55] VITALS: BP 121/79; PULSE 63; RESP 18; TEMP 97.7; O2SAT 96
== END 2025-06-16 16:25 | disposition home or self-care (01) | DRG 807 ==
LOC: OPB 15:53 → 4S1 15:56 → 4E2 06-15 03:22